=== PATIENT | female | born 1975 | race Caucasian/White ===

== ENCOUNTER → 2018-10-20 08:26 | Outpatient (CLI) | payer OTHER, MEDICAID, SELFPAY ==
--- NOTE | 2018-10-20 | DI.RAD.S_ITS ---
PROCEDURE: [place] WRIST INJECTION MR/CT LT INDICATIONS: Pain in left wrist TECHNIQUE: After informed consent had been obtained, the wrist was examined fluoroscopically, and a site chosen for injection of the radiocarpal compartment from a dorsal approach. Skin was prepped and draped in a sterile fashion and 1% lidocaine infiltrated from the skin down to the articular surface. A hypodermic needle was then introduced into the articular space and a modest amount of contrast medium was instilled confirming intra-articular needle tip placement. This was followed by approximately 4 mL of a dilute gadolinium solution. Needle was removed and dressing was applied. The patient experienced no complications throughout the procedure and left the fluoroscopic suite in no apparent distress. FINDINGS: A single fluoroscopic spot image demonstrates intra-articular location to injected iodinated contrast. IMPRESSION: Successful fluoroscopic-guided administration of dilute Gadolinium solution for wrist MR arthrogram. Dictated by: Rudy Chung M.D. on 10/20/2018 at 11:41 Approved by: Rudy Chung M.D. on 10/20/2018 at 11:44
--- NOTE | 2018-10-20 | DI.MRI.S_ITS ---
PROCEDURE: MR WRIST LT W CON INDICATIONS: Pain in left wrist TECHNIQUE: After the administration of 3-4 mL of dilute intra-articular Gadolinium contrast into the radiocarpal compartment, coronal T1 spin echo with fat saturation and T2 fast spin echo with fat saturation, axial T1 spin echo and T2 fast spin echo with fat saturation, sagittal T1 spin echo with and without fat saturation through the wrist. COMPARISON: [facility], , [place] WRIST INJECTION MR/CT LT, 10/20/2018, 9:18. FINDINGS: Image quality: Excellent. Bones and cartilage: The carpal bones are normally aligned. No bone marrow contusions . There is defect of the radial styloid suggestive of age indeterminate fracture. The relative paucity of marrow edema suggests subacute or chronic age. No evidence for avascular necrosis. Overlying cartilage surfaces appear normal. Carpal ligaments: The scapholunate and lunotriquetral ligaments appear intact, without gadolinium extravasation into the mid-carpal compartment. The radioscaphocapitate and short radiolunate ligaments are not well-seen and there is cystic change edema/T2 hyperintensity raising the possibility of ligamentous injury, and/or ganglion cyst The dorsal intercarpal and radiotriquetral ligaments appear intact. On sagittal images, the pisohamate ligament appears intact. Triangular fibrocartilage complex: There is thin appearance of the central disc of the TFCC on image 8 series 4 although no discrete tear is seen. There is contrast material leaking into the distal radioulnar joint suggestive of occult full thickness TFCC defect The adjacent meniscal homolog appears normal. The ulnar collateral ligament appears intact. The extensor carpi ulnaris tendon is normal in location and morphology. Tendons and soft tissues: The carpal tunnel structures appear normal, including the median nerve. The ulnar nerve appears normal within Guyon's canal. IMPRESSION: Injected contrast material seen within the distal radioulnar joint suggestive of subtle TFCC tear which is not well-visualized. There is thinned appearance of the central disc as discussed above which may reflect the defect, probably degenerative injury. Minimal if any distal radius/ulna or lunate chondromalacia Probably subacute/chronic fracture involving the radial styloid. Recommend corroboration with dedicated wrist radiographs. Dictated by: Kevin Callaway M.D. on 10/20/2018 at 13:03 Approved by: Kevin Callaway M.D. on 10/20/2018 at 13:19
== END ==
PROVIDERS: Family Provider Family Medicine; PCP Family Medicine; Visit Provider Physical Medicine & Rehabilitation
DX: M25.532 Pain in left wrist (principal)
CPT/HCPCS: 20605; 73222; 76000

== ENCOUNTER 2023-07-21 11:04 | Emergency (ER) | payer SELFPAY ==
[2023-07-21] VITALS (25 sets, daily range): BP systolic 132–233; BP diastolic 73–129; PULSE 56–85; RESP 13–36; TEMP 36.7–37.1; O2SAT 97–100; BMI 27.4
--- NOTE | 2023-07-21 11:13 | DI.RAD.S_ITS ---
PROCEDURE: XR CHEST 1V INDICATIONS: chest pain TECHNIQUE: One view of the chest was acquired. COMPARISON: None. FINDINGS: Surgical changes and devices: The Lungs and pleura: Mild diffuse interstitial prominence. No focal consolidation. No significant perihilar airway thickening identified. No pneumothorax or pleural effusion. Mediastinum: Mediastinal contours appear normal. Heart size is normal. Bones and chest wall: No suspicious bony lesions. Overlying soft tissues appear unremarkable. IMPRESSION: Mild diffuse interstitial prominence without focal consolidation or perihilar airway thickening. Findings are nonspecific and may represent sequela of infectious/inflammatory process. Pulmonary edema may have a similar appearance if clinically appropriate. Dictated by: Chuck Munoz M.D. on 07/21/2023 at 12:04 Approved by: Chuck Munoz M.D. on 07/21/2023 at 12:06
--- NOTE | 2023-07-21 11:18 | ED.CHESTPAIN ---
HPI - Chest Pain General Chief Complaint: Chest Pain Stated Complaint: chest pain, numbness in fingers Time Seen by Provider: 07/21/23 11:17 Source: patient Mode of arrival: Ambulatory Limitations: no limitations History of Present Illness HPI narrative: This is a 48-year-old female presents emergency department due to Reports of 2 weeks of intermittent heart palpitations with intermittent episodes of chest pain. Patient denied any chest pain at triage but now reports a 8 out 10 chest pain described as a pressure. She denies any left upper extremity pain, the chest pain does not radiate to any parts of her body. She denies any nausea, vomiting, shortness of breath, abdominal pain, or any other concerning signs or symptoms. Also reports numbness and tingling in the hands bilaterally. History of MO 10 years ago with 1 stent placed by a steam boiler fireman at [place]. She had a few follow up visits with him after the procedure but does not being seen by him. She denies any other medical history but does report smoking. Related Data Home Medications Medication Instructions Recorded Confirmed No Known Home Medications 05/08/18 05/08/18 Allergies Allergy/AdvReac Type Severity Reaction Status Date / Time No Known Drug Allergies Allergy Verified 05/08/18 10:34 Review of Systems Review of Systems Narrative: GENERAL: Denies chills, fatigue, malaise, fever, sweats. HEENT: Denies sinus pain, ear pain, sore throat, difficulty swallowing, dizziness. RESPIRATORY: Denies dyspnea, cough, wheezing, hemoptysis, sputum. CARDIOVASCULAR: Reports chest pain, denies palpitations, orthopnea, edema, GASTROINTESTINAL: Denies nausea, vomiting, abdominal pain, diarrhea, constipation, melena. : Denies dysuria, frequency, incontinence, hematuria, urinary retention. MUSCULOSKELETAL: denies weakness, joint pain, or bony pain SKIN: Denies rash, skin lesions, or other NEUROLOGIC: Denies weakness, headache, numbness, change in speech, confusion, seizures, incoordination. PSYCHIATRIC: No concerning psychosocial issues. 12 point review of systems is negative except for those stated above Patient History Medical History (Updated 07/21/23 @ 12:57 by Rubio Schaffer PA-C) CAD (coronary artery disease) (2013) Surgical History (Updated 07/28/18 @ 12:41 by Amada Son) Encounter for Essure implantation (2011) History of cholecystectomy History of ERCP History of heart artery stent (12/2013) Family History (Updated 07/28/18 @ 12:41 by Amada Son) Mother COPD (chronic obstructive pulmonary disease) Father Cancer Mesothelioma Social History Smoking Status: Current every day smoker Smoking Status: Current every day smoker tobacco type: cigarettes Substance Use Type: does not use Exam Narrative Exam Narrative: GENERAL: Well-developed patient, in mild distress. HEAD: Atraumatic. Normocephalic. EYES: Pupils equal round and reactive. Extraocular motions intact. No scleral icterus. No injection or drainage. ENT: Nose without bleeding, purulent drainage. Throat without erythema, tonsillar hypertrophy or exudate. Airway patent. NECK: Trachea midline. Non tender CARDIOVASCULAR: Regular rate and rhythm without murmurs, gallops, or rubs. RESPIRATORY: Clear to auscultation. Breath sounds equal bilaterally. No wheezes, rales, or rhonchi. GASTROINTESTINAL: Abdomen soft, non-tender, nondistended. EXTREMITIES: No edema or joint tenderness. BACK: Nontender without deformity or crepitance. No flank tenderness. NEURO: AOx3. SKIN: No rash or erythema of visible areas Initial Vital Signs Initial Vital Signs: Vital Signs Temperature 98.8 F 07/21/23 11:10 Pulse Rate 85 07/21/23 11:10 Respiratory Rate 20 07/21/23 11:10 Blood Pressure 172/102 H 07/21/23 11:10 Pulse Oximetry 100 07/21/23 11:10 Oxygen Delivery Method Room Air 07/21/23 11:10 Course Course Course Narrative: 1244: Discussed case with on-call steam boiler fireman, Dr. Galvin, who recommended transfer to higher level of care for mobile lab technician due to the NSTEMI. 1245: [facility] stated that they have no beds available. We will continue to call facilities for bed availability. 1353: Spoke with [facility] transfer center who will check with [facility] for bed availability. Ordered COVID test. 1415: Spoke with Dr. Dawson, steam boiler fireman, of [facility] who kindly stated that they would see the patient. 1500: Received call from [facility] saying they have bed availability and will accept the patient for transfer. Orders Ordered: ED Orders 07/21/23 11:13 XR chest 1V Stat EKG-12 Lead Stat EKG-12 Lead Stat 07/21/23 11:25 BNP [NT-proBNP (BNP-Adult 18+)] Stat Complete Blood Count AUTO DIFF Stat Comprehensive Metabolic Panel Stat Lipase Stat Magnesium Stat PTT Partial Thromboplastin Nasir Stat Prothrombin Time INR Stat TSH [Thyroid Stimulating Hormone] Stat Troponin & CK Cardiac Panel Stat 07/21/23 13:30 CK [Creatine Kinase] Stat Troponin I Stat 07/21/23 13:38 Lactate (Lactic Acid) Stat 07/21/23 13:57 COVID19 -Nasal RAPID Stat Heparin Sodium/Dextrose (Heparin Drip) 25,000 unit in 500 mls @ 17.418 mls/hr IV CONT SANTINO; Protocol Last Admin: 07/21/23 13:21 Dose: 12 units/kg/hr, 17.418 mls/hr Documented By: YUNIER Co-signed By: SADE Nitroglycerin (Nitroglycerin 0.4 Mg Sl Tab) 0.4 mg SL [id number] PRN PRN Reason: Chest pain Last Admin: 07/21/23 11:33 Dose: 0.4 mg Documented By: JOSÉ Discontinued Medications Aspirin (Aspirin 81 Mg Chew Tab) 324 mg PO NOW ONE Stop: 07/21/23 11:14 Last Admin: 07/21/23 11:28 Dose: 324 mg Documented By: JOSÉ Aspirin (Aspirin 81 Mg Chew Tab) 324 mg PO NOW ONE Stop: 07/21/23 11:29 Last Admin: 07/21/23 11:32 Dose: Not Given Documented By: JOSÉ Heparin Sodium (Porcine) (Heparin 5,000 Unit/Ml Vial) 4,000 unit IV NOW ONE Stop: 07/21/23 13:26 Last Admin: 07/21/23 13:27 Dose: 4,000 unit Documented By: YUNIER Vital Signs Vital signs: Vital Signs - 8 hr 07/21/23 11:10 07/21/23 11:33 07/21/23 11:12 Temperature 98.8 F Pulse Rate 85 74 Respiratory Rate 20 Blood Pressure 172/102 H 223/108 H 183/113 H Pulse Oximetry 100 Oxygen Delivery Method Room Air 07/21/23 11:12 07/21/23 11:30 07/21/23 11:31 Temperature Pulse Rate 79 73 83 Respiratory Rate 18 19 36 H Blood Pressure Pulse Oximetry 100 100 100 Oxygen Delivery Method 07/21/23 11:31 07/21/23 11:38 07/21/23 11:38 Temperature Pulse Rate 76 Respiratory Rate 18 Blood Pressure 223/108 H 160/129 H Pulse Oximetry 100 Oxygen Delivery Method 07/21/23 11:46 07/21/23 11:46 07/21/23 12:00 Temperature Pulse Rate 78 Respiratory Rate 17 Blood Pressure 132/88 186/99 H Pulse Oximetry 98 Oxygen Delivery Method Room Air 07/21/23 12:00 07/21/23 12:30 07/21/23 12:30 Temperature Pulse Rate 62 73 Respiratory Rate 13 14 Blood Pressure 133/77 Pulse Oximetry 99 98 Oxygen Delivery Method 07/21/23 13:00 07/21/23 13:00 07/21/23 13:30 Temperature Pulse Rate 76 Respiratory Rate 23 Blood Pressure 142/96 H 149/86 H Pulse Oximetry 97 Oxygen Delivery Method 07/21/23 13:30 07/21/23 13:58 07/21/23 14:00 Temperature 98.0 F Pulse Rate 72 Respiratory Rate 23 Blood Pressure 163/80 H Pulse Oximetry 100 Oxygen Delivery Method 07/21/23 14:00 07/21/23 14:30 07/21/23 14:30 Temperature Pulse Rate 67 68 Respiratory Rate 15 15 Blood Pressure 138/73 Pulse Oximetry 99 99 Oxygen Delivery Method 07/21/23 15:00 Temperature Pulse Rate 67 Respiratory Rate 22 Blood Pressure Pulse Oximetry 99 Oxygen Delivery Method MDM - Chest Pain Lab Data 07/21/23 11:25 07/21/23 11:25 Labs: Lab Results 07/21/23 07/21/23 07/21/23 Range/Units 11:25 11:25 11:25 WBC 11.1 H (4.5-11.0) X10^3/uL RBC 4.80 (4.0-5.2) X10^6/uL Hgb 14.5 (12.0-16.0) g/dL Hct 41.5 (36-46) % MCV 86.6 (80-100) fL MCH 30.3 (26-34) PG MCHC 35.0 (30-36) % RDW 13.3 (11.6-14.8) % Plt Count 312 (150-400) X10^3/uL Neut % (Auto) 54.7 (50-75) % Lymph % (Auto) 37.1 (25-40) % Antelope % (Auto) 5.6 (3-14) % Eos % (Auto) 1.4 L (2-4) % Baso % (Auto) 1.2 (0-2) % Neut # (Auto) 6100 (1338-1682) /uL Lymph # (Auto) 4100 (5912-7726) /uL Antelope # (Auto) 600 (0-900) /uL Eos # (Auto) 200 (0-450) /uL Baso # (Auto) 100 (0-100) /uL PT 11.1 (10.1-12.7) SECONDS INR 1.0 (0.9-1.3) APTT 34 (26-36) SECONDS Sodium 137 (137-145) mmol/L Potassium 3.8 (3.4-5.1) mmol/L Chloride 104 (98-107) mmol/L Carbon Dioxide 23 (22-32) mmol/L BUN 11 (7-17) mg/dL Creatinine 0.66 (0.52-1.04) mg/dL Estimated GFR > 60 (>60) mL/min BUN/Creatinine Ratio 16.7 (6-22) Glucose 112 H (70-100) mg/dL Lactate (0.7-2.1) mmol/L Calcium 10.0 (8.4-10.2) mg/dL Magnesium 1.9 (1.6-2.3) mg/dL Total Bilirubin 0.4 (0.2-1.3) mg/dL AST 21 (14-36) IU/L ALT 22 (<35) IU/L Alkaline Phosphatase 86 (38-126) U/L Total Creatine Kinase 67 (30-135) U/L Troponin I 0.065 H (0.01-0.034) ng/mL NT-Pro-B Natriuret Pep (<125) pg/mL Total Protein 8.2 (6.3-8.2) g/dL Albumin 4.7 (3.5-5.0) g/dL Globulin 3.5 (1.7-4.1) g/dL Albumin/Globulin Ratio 1.3 (1.0-2.8) Lipase 74 (23-300) U/L TSH (0.47-4.68) uIU/mL SARS-CoV-2 (PCR) (Negative) 07/21/23 07/21/23 07/21/23 Range/Units 11:25 11:25 13:30 WBC (4.5-11.0) X10^3/uL RBC (4.0-5.2) X10^6/uL Hgb (12.0-16.0) g/dL Hct (36-46) % MCV (80-100) fL MCH (26-34) PG MCHC (30-36) % RDW (11.6-14.8) % Plt Count (150-400) X10^3/uL Neut % (Auto) (50-75) % Lymph % (Auto) (25-40) % Antelope % (Auto) (3-14) % Eos % (Auto) (2-4) % Baso % (Auto) (0-2) % Neut # (Auto) (6872-9465) /uL Lymph # (Auto) (2965-1089) /uL Antelope # (Auto) (0-900) /uL Eos # (Auto) (0-450) /uL Baso # (Auto) (0-100) /uL PT (10.1-12.7) SECONDS INR (0.9-1.3) APTT (26-36) SECONDS Sodium (137-145) mmol/L Potassium (3.4-5.1) mmol/L Chloride (98-107) mmol/L Carbon Dioxide (22-32) mmol/L BUN (7-17) mg/dL Creatinine (0.52-1.04) mg/dL Estimated GFR (>60) mL/min BUN/Creatinine Ratio (6-22) Glucose (70-100) mg/dL Lactate (0.7-2.1) mmol/L Calcium (8.4-10.2) mg/dL Magnesium (1.6-2.3) mg/dL Total Bilirubin (0.2-1.3) mg/dL AST (14-36) IU/L ALT (<35) IU/L Alkaline Phosphatase (38-126) U/L Total Creatine Kinase (30-135) U/L Troponin I 0.069 H (0.01-0.034) ng/mL NT-Pro-B Natriuret Pep 609 H (<125) pg/mL Total Protein (6.3-8.2) g/dL Albumin (3.5-5.0) g/dL Globulin (1.7-4.1) g/dL Albumin/Globulin Ratio (1.0-2.8) Lipase (23-300) U/L TSH 1.59 (0.47-4.68) uIU/mL SARS-CoV-2 (PCR) (Negative) 07/21/23 07/21/23 07/21/23 Range/Units 13:30 13:38 13:57 WBC (4.5-11.0) X10^3/uL RBC (4.0-5.2) X10^6/uL Hgb (12.0-16.0) g/dL Hct (36-46) % MCV (80-100) fL MCH (26-34) PG MCHC (30-36) % RDW (11.6-14.8) % Plt Count (150-400) X10^3/uL Neut % (Auto) (50-75) % Lymph % (Auto) (25-40) % Antelope % (Auto) (3-14) % Eos % (Auto) (2-4) % Baso % (Auto) (0-2) % Neut # (Auto) (1975-5188) /uL Lymph # (Auto) (2131-2840) /uL Antelope # (Auto) (0-900) /uL Eos # (Auto) (0-450) /uL Baso # (Auto) (0-100) /uL PT (10.1-12.7) SECONDS INR (0.9-1.3) APTT (26-36) SECONDS Sodium (137-145) mmol/L Potassium (3.4-5.1) mmol/L Chloride (98-107) mmol/L Carbon Dioxide (22-32) mmol/L BUN (7-17) mg/dL Creatinine (0.52-1.04) mg/dL Estimated GFR (>60) mL/min BUN/Creatinine Ratio (6-22) Glucose (70-100) mg/dL Lactate 1.2 (0.7-2.1) mmol/L Calcium (8.4-10.2) mg/dL Magnesium (1.6-2.3) mg/dL Total Bilirubin (0.2-1.3) mg/dL AST (14-36) IU/L ALT (<35) IU/L Alkaline Phosphatase (38-126) U/L Total Creatine Kinase 62 (30-135) U/L Troponin I (0.01-0.034) ng/mL NT-Pro-B Natriuret Pep (<125) pg/mL Total Protein (6.3-8.2) g/dL Albumin (3.5-5.0) g/dL Globulin (1.7-4.1) g/dL Albumin/Globulin Ratio (1.0-2.8) Lipase (23-300) U/L TSH (0.47-4.68) uIU/mL SARS-CoV-2 (PCR) Negative (Negative) Imaging Data Chest x-ray: Radiologist's Impression: [address] [address] XRay Report Signed Patient: Noemi Brennan MR#: [id number] : 1975 Acct:[id number] Age/Sex: 48 / F Date of Service: 07/21/23 Loc: ED Accession Number: [id number] ?? Procedure: XR chest 1V Ordering Provider: Dariana Hennessy MD PROCEDURE:? XR CHEST 1V ? INDICATIONS:? chest pain ? TECHNIQUE:? One view of the chest was acquired.? ? COMPARISON:? None. ? FINDINGS:? ? Surgical changes and devices:? The ? Lungs and pleura:? Mild diffuse interstitial prominence.? No focal consolidation.? No significant perihilar airway thickening identified.? No pneumothorax or pleural effusion. ? Mediastinum:? Mediastinal contours appear normal.? Heart size is normal.? ? Bones and chest wall:? No suspicious bony lesions.? Overlying soft tissues appear unremarkable.? ? IMPRESSION:? Mild diffuse interstitial prominence without focal consolidation or perihilar airway thickening.? Findings are nonspecific and may represent sequela of infectious/inflammatory process.? Pulmonary edema may have a similar appearance if clinically appropriate. ? ? Dictated by: Chuck Munoz M.D. on 07/21/2023 at 12:04 ? ? Approved by: Chuck Munoz M.D. on 07/21/2023 at 12:06 ? ECG Data Interpretation: 1113 EKG is normal sinus rhythm rate 76 and free of any signs of ischemia or ectopy. No ST segmental elevation or depression. No T wave inversions 1336 EKG is normal sinus rhythm rate 67 and free of any signs of ischemia or ectopy. No ST segmental elevation or depression. No T wave inversions. No changes from prior. MDM Narrative Medical decision making narrative: MDM * differential diagnosis includes but not limited to musculoskeletal chest pain, stable angina, unstable angina, NSTEMI, STEMI, pneumonia, pulmonary embolism * Prior records reviewed: Patient has not been here in the emergency department in the past. * My lab interpretation: CBC unremarkable. CMP unremarkable. Initial troponin elevated at 0.065 as noted below. Coags within normal limits. Magnesium within normal limit. TSH within normal limits. * My imaging interpretation: Chest x-ray showed nonspecific sequela of infectious/inflammatory processes. Did suggest pulmonary edema although patient did not present with any significant shortness of breath or lower extremity edema suggestive of congestive heart failure. * Clinical Decision Rules/Scores evaluated: PERC score is 0. Heart score of 5. * Independent discussions with: None ED Course: This is a 48-year-old female with a history of an MO 10 years ago with stent placement presents to the emergency department due to 2 weeks of intermittent episodes of ?rapid heartbeat? as well as chest pain. Patient initially did not have any chest pain when she was triaged but developed some during my interview with her. Patient was given 0.4 of nitro as well as aspirin 324 which caused her chest pain to completely improve. Initial EKG unremarkable. Initial troponin elevated at 0.065. Other lab work unremarkable. Discussed case with on-call steam boiler fireman, Dr. Galvin, who recommended transfer to higher level of care for mobile lab technician due to the NSTEMI. Heparin ordered. Repeat EKG similar to prior. Repeat troponin was 0.069. Case was discussed with Dr. Dawson, , steam boiler fireman, of [facility] who kindly stated that they would see the patient. Patient will be transferred to the [facility] emergency department for continued care. Shared Decision Making: Discussed plan with patient who is comfortable with the plan. Social Considerations: None Disposition: Transferred to [facility] for admission Discharge Plan Departure Patient Disposition: [facility] Clinical Impression: Acute non-ST elevation myocardial infarction (NSTEMI) Prescriptions: No Action No Known Home Medications Referrals: Jacqueline Savage MD [Primary Care Provider] -
[2023-07-21] MEDS: ASPIRIN 81 MG CHEW TAB 324 MG PO (11:28)
[2023-07-21 11:33] LABS: Add Manual Diff / Slide Review NO; Basophils Absolute Auto 100 /uL (0-100); Basophils Percent Auto 1.2 % (0-2); Eosinophils Absolute Auto 200 /uL (0-450); Eosinophils Percent Auto 1.4 % (2-4); Hematocrit 41.5 % (36-46); Hemoglobin 14.5 g/dL (12.0-16.0); Lymphocytes Absolute Auto 4100 /uL (1100-4500); Lymphocytes Percent Auto 37.1 % (25-40); Mean Corpuscular Hemoglobin 30.3 PG (26-34); Mean Corpuscular Volume 86.6 fL (80-100); Monocytes Absolute Auto 600 /uL (0-900); Monocytes Percent Auto 5.6 % (3-14); Neutrophils Absolute Auto 6100 /uL (1500-7000); Neutrophils Percent Auto 54.7 % (50-75); Platelet Count 312 X10^3/uL (150-400); Red Cell Distribution Width 13.3 % (11.6-14.8); White Blood Cell Count 11.1 X10^3/uL (4.5-11.0)
[2023-07-21] MEDS: NITROGLYCERIN 0.4 MG SL TAB SL (11:33)
[2023-07-21 11:42] LABS: Prothrombin Time 11.1 SECONDS (10.1-12.7)
[2023-07-21 11:45] LABS: PTT Partial Thromboplastin Tim 34 SECONDS (26-36)
--- NOTE | 2023-07-21 11:53 | PC.NURSE ---
After one nitro, patient reports her chest pain is now completely gone as well as the numbness and tingling in her hands. BP is now 130systolic, whereas 15 minutes ago it was 220 systolic. Sarbjit khan.
[2023-07-21 11:54] LABS: Alanine Aminotransferase 22 IU/L (<35); Albumin 4.7 g/dL (3.5-5.0); Albumin Globulin Ratio 1.3 (1.0-2.8); Alkaline Phosphatase 86 U/L (38-126); Aspartate Aminotransferase 21 IU/L (14-36); BUN Creatinine Ratio 16.7 (6-22); Bilirubin Total 0.4 mg/dL (0.2-1.3); Blood Urea Nitrogen 11 mg/dL (7-17); Carbon Dioxide 23 mmol/L (22-32); Chloride 104 mmol/L (98-107); Creatine Kinase 67 U/L (30-135); Estimated Glomerular Filt Rate > 60 mL/min (>60); Globulin 3.5 g/dL (1.7-4.1); Glucose 112 mg/dL (70-100); HEMOLYSIS < 15 (0-50); Lipase 74 U/L (23-300); Magnesium 1.9 mg/dL (1.6-2.3); Potassium 3.8 mmol/L (3.4-5.1); Sodium 137 mmol/L (137-145); Total Protein 8.2 g/dL (6.3-8.2)
[2023-07-21 12:05] LABS: Troponin I 0.065 ng/mL (0.01-0.034)
--- NOTE | 2023-07-21 12:09 | PC.NURSE ---
1131 Patient reports 8/10 chest pain with high BP 220 systolic and numbness and tingling in hands. Nitro given x1.
--- NOTE | 2023-07-21 12:11 | CM.MNRNOTE ---
reports numbness and tingling in hands. Has had feeling of heart racing multiple times with intermittent chest pain in the last few weeks. No palpitations at this time.
[2023-07-21 12:25] LABS: Thyroid Stimulating Hormone 1.59 uIU/mL (0.47-4.68)
[2023-07-21 12:59] LABS: NT-proBNP (BNP-Adult 18+) 609 pg/mL (<125)
[2023-07-21] MEDS: HEPARIN DRIP 25,000 UNIT/500 ML IV.SOLN 17.418 UNIT IV (13:21)
[2023-07-21] MEDS: HEPARIN 5,000 UNIT/ML VIAL 4000 UNIT IV (13:27)
[2023-07-21 14:02] LABS: Troponin I 0.069 ng/mL (0.01-0.034)
[2023-07-21 14:18] LABS: COVID19 -Nasal RAPID Negative (Negative)
[2023-07-21 14:25] LABS: Lactate (Lactic Acid) 1.2 mmol/L (0.7-2.1)
[2023-07-21 14:37] LABS: Creatine Kinase 62 U/L (30-135)
== END 2023-07-21 18:14 | disposition short-term general hospital (02) ==
PROVIDERS: Emergency Medicine; Emergency Provider Physician Assistant Medical; Family Provider Family Medicine; PCP Family Medicine
DX: I21.4 Non-ST elevation (NSTEMI) myocardial infarction (principal); Z20.822 Contact with and (suspected) exposure to COVID-19
CPT/HCPCS: 36415; 71045; 80053; 82550; 83605; 83690; 83735; 83880; 84443; 84484; 85025; 85610; 85730; 87635; 93005; 96365; 96366; 96375; 99285; C9803; J1644